=== PATIENT | male | born 1970 | race Asian ===

== ENCOUNTER 2021-04-14 06:30 | Day surgery (SDC) | payer MEDICARE, MEDICAID ==
[~2021-04-14] VITALS: Ht 165.1 cm; Wt 69.2 kg
[2021-04-14] MEDS ORDERED: normal saline 1000ml 1,000 ML IV PRN (07:00)
[2021-04-14 07:36] LABS: BASOPHILS % (AUTO) 0.5 % (0-1); EOSINOPHILS # (AUTO) 0.1 X10'3 (0-0.9); EOSINOPHILS % (AUTO) 1.1 % (0-6); HEMATOCRIT 36.4 % (42.0-52.0); HEMOGLOBIN 12.5 g/dl (14.0-17.9); LYMPHOCYTES # (AUTO) 2.3 X10'3 (1.1-4.8); LYMPHOCYTES % (AUTO) 27.4 % (21-51); MEAN CORPUSCULAR HEMOGLOBIN 32.6 PG (27.0-31.0); MEAN CORPUSCULAR HGB CONC 34.4 g/dL (33.0-36.5); MEAN PLATELET VOLUME 6.5 FL (7.4-10.4); MONOCYTES # (AUTO) 0.6 X10'3 (0-0.9); MONOCYTES % (AUTO) 6.8 % (2-12); NEUTROPHILS # (AUTO) 5.5 X10'3 (1.8-7.7); NEUTROPHILS % (AUTO) 64.2 % (42-75); PLATELET COUNT 207 X10'3 (140-440); RED BLOOD COUNT 3.83 X10'6 (4.70-6.10); RED CELL DISTRIBUTION WIDTH 13.8 % (11.5-14.5); WHITE BLOOD COUNT 8.5 X10'3 (4.5-11.0)
[2021-04-14] MEDS ORDERED: CARV25TA PO (07:49)
[2021-04-14] MEDS ORDERED: SEVE800T28 PO (07:49)
[2021-04-14] MEDS ORDERED: PRE5T PO (07:49)
[2021-04-14] MEDS ORDERED: HYDR-4070 PO (07:49)
[2021-04-14] MEDS ORDERED: CYCL100C2 PO (07:49)
[2021-04-14] MEDS ORDERED: MYCO250C46 PO (07:49)
[2021-04-14] MEDS ORDERED: DILT120C88 PO (07:49)
[2021-04-14] MEDS ORDERED: ZAR2.5T PO (07:49)
[2021-04-14] MEDS ORDERED: COLC0.6T72 PO (07:49)
[2021-04-14 08:02] LABS: ALBUMIN 3.3 G/DL (3.4-5.0); ANION GAP 18 (8-16); BLOOD UREA NITROGEN 101 MG/DL (7-18); BUN/CREATININE RATIO 5.5 (5.4-32.0); CALCIUM 8.6 MG/DL (8.5-10.1); CHLORIDE 100 MMOL/L (99-107); CREATININE 18.22 MG/DL (0.60-1.10); GLUCOSE 91 MG/DL (70-104); POTASSIUM 4.7 MMOL/L (3.5-5.1); SODIUM 137 MMOL/L (135-145); TOTAL CARBON DIOXIDE 19.4 MMOL/L (24-32); eGFR 3 ML/MIN
[2021-04-14] MEDS ORDERED: heparin 1,000 UNITS/NS 500ml 500 ML ONE ×2 (09:10→10:28)
[2021-04-14] MEDS ORDERED: LIDOcaine 1% (10mg/ml) 2ml vial ONE (09:10)
[2021-04-14] MEDS ORDERED: iohexol 300mg/ml 100ml inj. ONE (09:10)
[2021-04-14] MEDS ORDERED: midazolam 1 mg/ML 2ml injection ONE ×2 (09:10→09:50)
[2021-04-14] MEDS ORDERED: fentaNYL/PF 50MCG/1 ML 2ML syringe ONE ×2 (09:10→09:50)
[2021-04-14 11:03] VITALS: BP 147/93
[2021-04-14 11:15] VITALS: BP 144/104
[2021-04-14 11:30] VITALS: BP 158/102
[2021-04-14 11:45] VITALS: BP 131/87
[2021-04-14 12:00] VITALS: BP 131/93
== END 2021-04-14 12:10 | disposition home or self-care (01) ==
LOC: SSTAY O 06:30
PROVIDERS: ATTEND Radiology Diagnostic Radiology
DX: T82.858A Stenosis of other vascular prosthetic devices, implants and grafts, initial encounter (principal); I12.0 Hypertensive chronic kidney disease with stage 5 chronic kidney disease or end stage renal disease; N18.6 End stage renal disease; G62.9 Polyneuropathy, unspecified; Z88.8 Allergy status to other drugs, medicaments and biological substances; Y83.2 Surgical operation with anastomosis, bypass or graft as the cause of abnormal reaction of the patient, or of later complication, without mention of misadventure at the time of the procedure; Y92.89 Other specified places as the place of occurrence of the external cause
CPT/HCPCS: 36415; 36903; 80048; 85025; 85610; 99152; 99153; C1725; C1769; C1876; C1894; J1644; J2001; J2250; J3010; Q9967

== ENCOUNTER 2023-07-03 08:51 | Emergency (ER) | payer MEDICARE, MEDICAID ==
[~2023-07-03] VITALS: Ht 165.1 cm; Wt 66.8 kg
[~2023-07-03 08:51] MED LIST: HYDR50TA46 PO; SEVE800T28 PO
[2023-07-03 09:04] VITALS: TEMP 97.8
[2023-07-03] MEDS: HYDROcodone/acetaminophen 10/325mg tab PO ONE (13:50)
[2023-07-03 13:58] VITALS: BP 141/88; PULSE 87; RESP 18; O2SAT 98
== END 2023-07-03 14:08 | disposition home or self-care (01) ==
LOC: ER 08:51
DX: N18.9 Chronic kidney disease, unspecified (principal); G44.89 Other headache syndrome; Z79.899 Other long term (current) drug therapy
CPT/HCPCS: 70450; 99284

== ENCOUNTER 2023-07-06 16:39 | Emergency (ER) | payer MEDICARE, MEDICAID ==
[~2023-07-06] VITALS: Ht 165.1 cm; Wt 71.1 kg
[2023-07-06 17:24] VITALS: BP 169/102; PULSE 84; RESP 18; TEMP 97; O2SAT 99
[2023-07-06 19:14] LABS: BASOPHILS # (AUTO) 0.1 X10'3 (0-0.2); EOSINOPHILS # (AUTO) 0.2 X10'3 (0-0.9); EOSINOPHILS % (AUTO) 3.2 % (0-6); HEMATOCRIT 34.3 % (42.0-52.0); HEMOGLOBIN 11.6 g/dl (14.0-17.9); LYMPHOCYTES # (AUTO) 1.6 X10'3 (1.1-4.8); LYMPHOCYTES % (AUTO) 31.6 % (21-51); MEAN CORPUSCULAR HEMOGLOBIN 31.6 PG (27.0-31.0); MEAN CORPUSCULAR HGB CONC 33.8 g/dL (33.0-36.5); MEAN CORPUSCULAR VOLUME 93.4 FL (78-98); MEAN PLATELET VOLUME 6.8 FL (7.4-10.4); MONOCYTES # (AUTO) 0.5 X10'3 (0-0.9); MONOCYTES % (AUTO) 10.2 % (2-12); NEUTROPHILS # (AUTO) 2.8 X10'3 (1.8-7.7); PLATELET COUNT 186 X10'3 (140-440); RED BLOOD COUNT 3.67 X10'6 (4.70-6.10); RED CELL DISTRIBUTION WIDTH 14.2 % (11.5-14.5); WHITE BLOOD COUNT 5.2 X10'3 (4.5-11.0)
[2023-07-06 19:26] LABS: ALANINE AMINOTRANSFERASE 19 U/L (12-78); ALBUMIN 3.5 G/DL (3.4-5.0); ALBUMIN/GLOBULIN RATIO 0.9 (1.1-1.5); ALKALINE PHOSPHATASE 79 IU/L (46-116); ANION GAP 5 (8-16); ASPARTATE AMINO TRANSFERASE 17 U/L (10-37); BILIRUBIN,TOTAL 0.6 MG/DL (0.1-1.0); BLOOD UREA NITROGEN 50 MG/DL (7-18); C-REACTIVE PROTEIN 0.05 MG/DL (0.0-0.5); CALCIUM 9.7 MG/DL (8.5-10.1); CHLORIDE 100 MMOL/L (99-107); CREATININE 12.35 MG/DL (0.60-1.10); GLUCOSE 100 MG/DL (70-104); POTASSIUM 4.7 MMOL/L (3.5-5.1); SODIUM 140 MMOL/L (135-145); TOTAL CARBON DIOXIDE 34.8 MMOL/L (24-32); TOTAL PROTEIN 7.6 G/DL (6.4-8.2); eCRCL 6 ML/MIN; eGFR 4 ML/MIN
== END 2023-07-06 20:14 | disposition home or self-care (01) ==
LOC: ER 16:40
DX: H53.2 Diplopia (principal); N18.9 Chronic kidney disease, unspecified; Z88.8 Allergy status to other drugs, medicaments and biological substances; Z79.899 Other long term (current) drug therapy
CPT/HCPCS: 36415; 70551; 80053; 85025; 85651; 86140; 99284